=== PATIENT | male | born 1995 | race Caucasian/White ===

== ENCOUNTER 2021-04-03 19:40 | Emergency (ER) | payer OTHER ==
[~2021-04-03 19:40] MED LIST: VENTOLIN HFA IN18 GM INH; ZPAK PO
[2021-04-05 09:09] LABS: HIV SCREEN 4TH GENERATION WRFX Non Reactive (Non Reactive)
== END 2021-04-03 21:04 | disposition home or self-care (01) ==
LOC: FER 19:40
PROVIDERS: Emergency Medicine Emergency Medical Services
DX: Z77.21 Contact with and (suspected) exposure to potentially hazardous body fluids (principal); Z98.890 Other specified postprocedural states
CPT/HCPCS: 86706; 86803; 87389; 99282